=== PATIENT | male | born 1945 | race African-American/Black ===

== ENCOUNTER → 2018-04-03 | Day surgery (SDC) | payer OTHER ==
[~2018-04-03] MED LIST: LACTATED RINGER'S 1000 ML INJ 1,000 ML ONE; PROPOFOL 500 MG/50 ML BTL IV ONE
--- NOTE | 2018-04-03 10:33 | GIPROC ---
[facility] [address] [facility], [address] COLONOSCOPY PROCEDURE REPORT EXAM DATE: 04/03/2018 PATIENT NAME: Rodriguez Bragg MR #: [id number] BIRTHDATE: 1945 ENDOSCOPIST: Oswald Wolf MD ORDER #: [id number] FOREPART RASPER: Teena Gomez RN STATUS: outpatient INDICATIONS: The patient is a 73 yr old male here for a colonoscopy due to abdominal pain and constipation PROCEDURE PERFORMED: Colonoscopy with polypectomy Colonoscopy with biopsy MEDICATIONS: None and Per Anesthesia. PREP QUALITY: good ESTIMATED BLOOD LOSS: None CONSENT: The patient understands the risks and benefits of the procedure and understands that these risks include, but are not limited to: sedation, allergic reaction, infection, perforation and/or bleeding. Alternative means of evaluation and treatment include, among others: physical exam, x-rays, and/or surgical intervention. The patient elects to proceed with this endoscopic procedure. medical equipment was checked for proper function. Hand hygiene and appropriate measures for infection prevention was taken. After the risks, benefits and alternatives of the procedure were thoroughly explained, Informed consent was verified, confirmed and timeout was successfully executed by the treatment team. A digital exam revealed no abnormalities of the rectum The EC-3890Li ([id number]) endoscope was introduced through the anus and advanced to the cecum, which was identified by both the appendix and ileocecal valve. The instrument was then slowly withdrawn as the colon was fully examined. COLON FINDINGS: A mass measuring 1 X 1cm in size with friable surfaces was found at the cecum. Multiple biopsies were performed. Two large smooth semi-pedunculated polyps were found in the distal transverse colon. A polypectomy was performed using snare cautery. The resection was complete and the polyp tissue was completely retrieved. Mild diverticulosis was noted in the sigmoid colon. The colon mucosa was otherwise normal. Retroflexed views revealed no abnormalities The scope was then completely withdrawn from the patient and the procedure terminated. PROCEDURE WITHDRAWAL TIME:21.5minutes ADVERSE EVENTS: There were no complications. IMPRESSIONS: 1. Mass measuring 1 X 1cm in size was found at the cecum; multiple biopsies were performed 2. Two large semi-pedunculated polyps were found in the distal transverse colon; polypectomy was performed using snare cautery 3. Mild diverticulosis was noted in the sigmoid colon 4. The colon mucosa was otherwise normal 5. Retroflexed views revealed no abnormalities 6. Revealed no abnormalities of the rectum RECOMMENDATIONS: 1. Await biopsy results. Biopsy results will not be ready for 7-10 days. If you don't hear from us in two weeks, call our office for results. 2. Follow-up: GI Clinic 3 week(s) 3. Xray for CT of abdomen with contrast 4. Xray for CT of pelvis with contrast 5. CEA RECALL: Return 1 year Colonoscopy Oswald Wolf MD eSigned: Oswald Wolf MD 04/03/2018 10:33 AM cc: Kianna Fields M.D. PATIENT NAME: Rodriguez Bragg MR#: [id number]
--- NOTE | 2018-04-03 10:36 | GIPROC ---
[facility] [address] [facility], [address] EGD PROCEDURE REPORT EXAM DATE: 04/03/2018 PATIENT NAME: Rodriguez Bragg MR #: [id number] BIRTHDATE: 1945 ATTENDING: Oswald Wolf MD ORDER #: [id number] DIRECTOR OF INVESTIGATIONS: Teena Gomez RN STATUS: outpatient INDICATIONS: The patient is a 73 yr old male here for an EGD due to history of esophageal reflux PROCEDURE PERFORMED: EGD w/ biopsy MEDICATIONS: None and Per Anesthesia. TOPICAL ANESTHETIC: CONSENT: The patient understands the risks and benefits of the procedure and understands that these risks include, but are not limited to: sedation, allergic reaction, infection, perforation and/or bleeding. Alternative means of evaluation and treatment include, among others: physical exam, x-rays, and/or surgical intervention. The patient elects to proceed with this endoscopic procedure. medical equipment was checked for proper function. Hand hygiene and appropriate measures for infection prevention was taken. After the risks, benefits and alternatives of the procedure were thoroughly explained, Informed consent was verified, confirmed and timeout was successfully executed by the treatment team. The patient was anesthetized with topical anesthesia and the EC-3890Li ([id number]) endoscope was introduced through the mouth and advanced to the second portion of the duodenum. Retroflexed views revealed no abnormalities The gastroscope was then slowly withdrawn and removed. STOMACH: A small pimpled nodule in the antrum was biopsied. DUODENUM: A polypoid lesion in the second portion of the duodenum possibly related to the ampulla this was biopsied. The endoscopy was otherwise normal. ADVERSE EVENTS: There were no complications. IMPRESSIONS: 1. A small pimpled nodule in the antrum was biopsied 2. A polypoid lesion in the second portion of the duodenum possibly related to the ampulla this was biopsied 3. Normal endoscopy otherwise 4. Retroflexed views revealed no abnormalities RECOMMENDATIONS: 1. Await biopsy results. Biopsy results will not be ready for 7-10 days. If you don't hear from us in two weeks, call our office for biopsy results. 2. Follow-up: GI clinic 3 week(s) 3. Consider ERCP versus EUS to further evaluate the duodenal nodule PATIENT CONDITION: stable DISPOSITION: Home REPEAT EXAM: Oswald Wolf MD eSigned: Oswald Wolf MD 04/03/2018 10:36 AM cc: Kianna Fields M.D. PATIENT NAME: Rodriguez Bragg MR#: [id number]
== END | disposition home or self-care (01) ==
LOC: ESDC 07:38
PROVIDERS: ATTEND Internal Medicine Gastroenterology
DX: R10.9 Unspecified abdominal pain (principal); K59.00 Constipation, unspecified; D12.3 Benign neoplasm of transverse colon; K63.89 Other specified diseases of intestine; K57.30 Diverticulosis of large intestine without perforation or abscess without bleeding; K21.9 Gastro-esophageal reflux disease without esophagitis; K31.89 Other diseases of stomach and duodenum; K31.7 Polyp of stomach and duodenum
CPT/HCPCS: 00813; 43239; 45380; 45385; 88305; J3010; J7120